=== PATIENT | female | born 1980 | race Caucasian/White ===

== ENCOUNTER 2019-02-03 20:10 | Emergency (ER) | payer OTHER, MEDICAID ==
[~2019-02-03] VITALS: Ht 167.6 cm; Wt 88.0 kg
[2019-02-03 20:50] VITALS: BP 184/103
== END 2019-02-03 20:52 | disposition home or self-care (01) ==
LOC: M.ERS 20:10
DX: F41.0 Panic disorder [episodic paroxysmal anxiety] (principal); F17.210 Nicotine dependence, cigarettes, uncomplicated